=== PATIENT | female | born 1950 | race Caucasian/White ===

== ENCOUNTER 2017-11-06 12:26 | Emergency (ER) | payer MEDICARE, BC ==
[~2017-11-06] VITALS: Ht 165.1 cm; Wt 61.6 kg
[~2017-11-06 12:26] MED LIST: DIOVAN PO
[2017-11-06 12:34] VITALS: Ht 165.1 cm; Wt 61.6 kg
--- NOTE | 2017-11-06 14:57 | RADRPT ---
PROCEDURE: RIGHT knee x-ray CLINICAL INDICATION: Knee pain TECHNIQUE: AP, lateral and oblique views of the knee were obtained. COMPARISON: None FINDINGS: There is normal mineralization. Multiple growth arrest and recovery lines within the proximal tibia . No acute fracture or dislocation is seen. There is no joint effusion. Mild degeneration of medial compartment manifest as joint space narrowing. There is no significant soft tissue swelling. IMPRESSION: Mild medial compartment osteoarthrosis. RPTAT: KK Physician Bassam Date Time Electronically viewed and signed by Ce Jimenez Physician on 11/06/2017 14:56 CO/
[2017-11-06] MEDS ORDERED: IBUP400T22 PO (15:21)
--- NOTE | 2017-11-06 17:39 | ERD ---
ER Documentation Chief Complaint Chief Complaint Complains of right knee pain after a fall today HPI This patient is a 67-year-old female who is otherwise healthy presenting for right knee pain after fall today. The patient states she accidentally stepped wrong and twisted her right knee and fell backwards. She did not hit her head or lose consciousness. Ambulation worsens the pain. It is intermittent. She took Tylenol with relief of symptoms. No other symptoms or injuries at this time. ROS All systems reviewed and are negative except as per history of present illness. Medications Home Meds Active Scripts Ibuprofen* (Motrin*) 400 Mg Tab, 400 MG PO Q6, #30 TAB Prov:CONNOLLYJEF PA-C 11/06/17 Reported Medications [Diovan] No Conflict Check, 30 MG PO DAILY 03/12/13 Allergies Allergies: Coded Allergies: No Known Allergy (Unverified , 03/12/13) PMhx/Soc Medical and Surgical Hx: pt denies Surgical Hx Hx Cardiac Disorders: Yes (htn) Hx Alcohol Use: No Hx Substance Use: No Hx Tobacco Use: No Smoking Status: Never smoker Physical Exam Vitals Vital Signs Date Time Temp Pulse Resp B/P Pulse Ox O2 Delivery O2 Flow Rate FiO2 11/06/17 12:34 98.7 86 20 123/87 98 Physical Exam Const: Nontoxic, well-appearing female in no acute distress. Head: Atraumatic Eyes: Normal Conjunctiva ENT: Normal External Ears, Nose and Mouth. Ext: Mild edema noted over the right anterior knee. Mild palpation noted over the anterior joint line of the right knee. Negative anterior and posterior drawer test. Neur: Awake and alert Psych: Normal Mood and Affect Procedures/MDM This is a pleasant 67-year-old female presented to the emergency department with complaints of right knee injury. History, physical examination, and x-ray imaging is consistent with strain of the right knee. The patient was placed in an Ronald wrap and she was neurovascularly intact post application. The patient was able to ambulate. Low suspicion for fracture or other emergencies. No evidence of life-threatening pathology at time of discharge. Pt/family in agreement with discharge plan/diagnosis. Pt/family advised to return immediately with any new or worsening symptoms. Follow-up with primary care physician within the next 1-2 days. PROCEDURE: RIGHT knee x-ray CLINICAL INDICATION: Knee pain TECHNIQUE: AP, lateral and oblique views of the knee were obtained. COMPARISON: None FINDINGS: There is normal mineralization. Multiple growth arrest and recovery lines within the proximal tibia. No acute fracture or dislocation is seen. There is no joint effusion. Mild degeneration of medial compartment manifest as joint space narrowing. There is no significant soft tissue swelling. IMPRESSION: Mild medial compartment osteoarthrosis. RPTAT: KK Physician Bassam Date Time Electronically viewed and signed by Ce Jimenez Physician on 11/06/2017 14 :56 Departure Diagnosis: Primary Impression: Right knee pain Chronicity: acute Qualified Code: M25.561 - Acute pain of right knee Condition: Fair Patient Instructions: Knee Sprain: Collateral Ligaments Referrals: [facility] YOU HAVE RECEIVED A MEDICAL SCREENING EXAM AND THE RESULTS INDICATE THAT YOU DO NOT HAVE A CONDITION THAT REQUIRES URGENT TREATMENT IN THE EMERGENCY DEPARTMENT. FURTHER EVALUATION AND TREATMENT OF YOUR CONDITION CAN WAIT UNTIL YOU ARE SEEN IN YOUR DOCTORS OFFICE WITHIN THE NEXT 1-2 DAYS. IT IS YOUR RESPONSIBILITY TO MAKE AN APPOINTMENT FOR FOLOW-UP CARE. IF YOU HAVE A PRIMARY DOCTOR --you should call your primary doctor and schedule an appointment IF YOU DO NOT HAVE A PRIMARY DOCTOR YOU CAN CALL OUR PHYSICIAN REFERRAL HOTLINE AT IF YOU CAN NOT AFFORD TO SEE A PHYSICIAN YOU CAN CHOSE FROM THE FOLLOWING [facility] [address] [facility] [facility] [address] [facility] [facility] [address] [facility] [facility] [address] [facility]. [facility] [address] [facility]. [facility]. [address] Additional Instructions: Call your primary care doctor TOMORROW for an appointment during the next 1-2 days.See the doctor sooner or return here if your condition worsens before your appointment time. JEF CONNOLLY PA-C Nov 06, 2017 17:39
== END 2017-11-06 15:37 | disposition home or self-care (01) ==
LOC: FTE 12:26
DX: S89.91XA Unspecified injury of right lower leg, initial encounter (principal); I10 Essential (primary) hypertension; W18.39XA Other fall on same level, initial encounter; Y92.9 Unspecified place or not applicable
CPT/HCPCS: 73562